=== PATIENT | male | born 1970 ===

== ENCOUNTER → 2017-08-27 | Outpatient (CLI) | payer SELFPAY ==
--- NOTE | 2017-08-27 12:48 | RAD ---
Right tibia and fibula, 2 views, 08/27/2017: History: Ankle pain, fall Images were obtained with a radiopaque splint in place posteriorly. No previous studies are available at this time for correlative purposes. No acute fracture is identified.
== END | disposition home or self-care (01) ==
LOC: DXRADRC 09:25
PROVIDERS: ATTEND Orthopaedic Surgery Sports Medicine
DX: M25.571 Pain in right ankle and joints of right foot (principal); W19.XXXA Unspecified fall, initial encounter; Y93.89 Activity, other specified; Y92.89 Other specified places as the place of occurrence of the external cause; Y99.8 Other external cause status
CPT/HCPCS: 73590